=== PATIENT | female | born 1995 | race African-American/Black ===

== ENCOUNTER 2024-04-14 17:20 | Emergency (ER) | payer OTHER ==
[~2024-04-14] VITALS: Ht 167.6 cm; Wt 123.0 kg
[2024-04-14 17:29] VITALS: O2SAT 100
[2024-04-14 18:54] LABS: BASOPHILS % 0.4 % (0.0-2.0); HEMATOCRIT. 38.8 % (36.0-48.0); HEMOGLOBIN. 12.8 g/dL (12.0-16.0); LYMPHOCYTES % 9.7 % (20.0-50.0); MEAN CORPUSCULAR HEMOGLOBIN 27.3 pg (28.0-32.0); MEAN CORPUSCULAR VOLUME 82.8 fL (81.0-99.0); MEAN PLATELET VOLUME 7.4 fl (7.4-10.4); MONOCYTES % 7.4 % (2.0-8.0); NEUTROPHILS % 82.5 % (40.0-76.0); PLATELET 390 x1000/uL (130-400); RED BLOOD CELL COUNT 4.68 mill/uL (4.2-5.4); RED CELL DISTRIBUTION WIDTH 14.8 % (11.6-14.6); WHITE BLOOD COUNT 13.1 x1000/uL (4.5-11.0)
[2024-04-14 19:02] LABS: CHLORIDE 110 mEq/L (98-107); SODIUM 141 mEq/L (136-145)
[2024-04-14 19:03] LABS: CALCIUM 9.6 mg/dL (8.7-10.4); CARBON DIOXIDE 21 mEq/L (21-32)
[2024-04-14 19:08] LABS: CREATININE 0.9 mg/dL (0.6-1.0); GLUCOSE 92 mg/dL (70-105); UREA NITROGEN BLOOD 18 mg/dL (9-23)
[2024-04-14 19:10] LABS: ETHANOL BLOOD < 10 mg/dL (<10)
[2024-04-14 19:14] LABS: HCG SCREEN NEGATIVE
[2024-04-15 00:10] LABS: *AMPHETAMINES SCREEN URINE PRESUMPTIVE POSITIVE (NEGATIVE); *BARBITURATES SCREEN URINE NEGATIVE (NEGATIVE); *BENZODIAZEPINES SCREEN URINE NEGATIVE (NEGATIVE); *COCAINE SCREEN URINE NEGATIVE (NEGATIVE); METHADONE URINE SCREEN NEGATIVE (NEGATIVE); OPIATES URINE SCREEN NEGATIVE (NEGATIVE)
[2024-04-15 00:11] LABS: CANNABINOID URINE SCREEN NEGATIVE (NEGATIVE); ECSTASY MDMA SCREEN URINE CONF.TEST INDICATED (NEGATIVE); PHENCYCLIDINE URINE SCREEN NEGATIVE (NEGATIVE)
[2024-04-15 01:04] LABS: CLARITY URINE CLOUDY (CLEAR); COLOR URINE YELLOW (YELLOW)
[2024-04-15 01:05] LABS: GLUCOSE URINE NEGATIVE (NEGATIVE); PROTEIN URINE TRACE (NEGATIVE)
[2024-04-15 01:06] LABS: KETONES URINE 3+ (NEGATIVE); NITRITE URINE NEGATIVE (NEGATIVE); OCCULT BLOOD URINE NEGATIVE (NEGATIVE); UROBILINOGEN URINE 0.2 E.U./dL (0.2-1.0)
[2024-04-15 01:07] LABS: LEUKOCYTE ESTERASE URINE NEGATIVE (NEGATIVE)
[2024-04-15 01:21] LABS: RBC URINE 0-2 /hpf (0-2); SQUAMOUS EPITHELIAL CELL URINE 1+ /lpf (RARE/1+)
[2024-04-15 01:22] LABS: BACTERIA URINE NONE SEEN
[2024-04-16 08:10] VITALS: BP 122/74; PULSE 68; RESP 18; TEMP 37.2; O2SAT 100
== END 2024-04-16 10:35 | disposition home or self-care (01) ==
LOC: ER 17:20 → EDBD 17:20 → ER 04-16 10:35
DX: R44.0 Auditory hallucinations (principal); Z20.822 Contact with and (suspected) exposure to COVID-19
CPT/HCPCS: 80305; 80048; 81003; 80307; 80329; 80320; 84703; 85025; 36415; 99285; 87426; Z7610 ×2; 99284; G0480

== ENCOUNTER 2024-12-25 07:50 | Emergency (ER) | payer OTHER ==
[~2024-12-25] VITALS: Ht 167.6 cm; Wt 91.0 kg
[2024-12-25 07:52] VITALS: BP 130/81; PULSE 98; RESP 18; TEMP 37; O2SAT 99
[2024-12-25] MEDS: ACETAMINOPHEN 325MG TABLET PO ONE (11:18)
[2024-12-25] MEDS: OLANZAPINE 10 MG/VIAL IM ONE (14:14)
[2024-12-25] MEDS: HALOPERIDOL LACTATE 5MG/ML VIAL IM ONE (14:14)
[2024-12-25] MEDS ORDERED: HALOPERIDOL LACTATE 5MG/ML VIAL IM ONE (16:15)
== END 2024-12-25 17:05 | disposition left against medical advice (07) ==
LOC: ER 07:50
DX: M79.604 Pain in right leg (principal)
CPT/HCPCS: 99284; 96372; J3490; J1630

== ENCOUNTER 2024-12-25 18:56 | Inpatient (IN) | payer OTHER ==
[~2024-12-25] VITALS: Ht 162.6 cm; Wt 114.3 kg
[2024-12-25 19:10] VITALS: O2SAT 100
[2024-12-25] MEDS ORDERED: HEPARIN 25,000 UNITS PREMIX 250 ML IV SCH (22:15)
[2024-12-25 23:27] LABS: BASOPHILS % 0.5 % (0.0-2.0); EOSINOPHILS % 0.2 % (0.0-5.0); HEMATOCRIT. 38.3 % (36.0-48.0); HEMOGLOBIN. 12.4 g/dL (12.0-16.0); LYMPHOCYTES % 18.2 % (20.0-50.0); MEAN PLATELET VOLUME 7.6 fl (7.4-10.4); MONOCYTES % 9.3 % (2.0-8.0); NEUTROPHILS % 71.8 % (40.0-76.0); PLATELET 360 x1000/uL (130-400); RED BLOOD CELL COUNT 4.49 mill/uL (4.2-5.4); RED CELL DISTRIBUTION WIDTH 16.2 % (11.6-14.6)
[2024-12-25 23:51] LABS: CREATININE 0.8 mg/dL (0.6-1.0); UREA NITROGEN BLOOD 16 mg/dL (9-23)
[2024-12-26 01:10] LABS: INR 1.2
[2024-12-26] MEDS: HEPARIN 80 UNITS/KG BOLUS IV SCH (01:37)
[2024-12-26] MEDS ORDERED: KETOROLAC 30MG/ML VIAL IV PRN (01:45)
[2024-12-26] MEDS ORDERED: MAGNESIUM/ALUMINUM HYDROXIDE/SIMETHICONE 30ML UDC PO PRN (01:45)
[2024-12-26] MEDS ORDERED: ONDANSETRON HCL 4MG/2ML INJ IV PRN (01:45)
[2024-12-26] MEDS ORDERED: ACETAMINOPHEN 325MG TABLET PO PRN (01:45)
[2024-12-26] MEDS: HEPARIN 25,000 UNITS PREMIX 250 ML IV SCH (01:55)
[2024-12-26] MEDS: ENOXAPARIN 120MG/0.8ML SYR SUBCUT SCH (03:00)
[2024-12-26] MEDS: DIPHENHYDRAMINE 50MG/ML VIAL IV PRN (03:00)
[2024-12-26 03:36] VITALS: BP 120/72; PULSE 110; RESP 18; TEMP 36.418
[2024-12-26] MEDS: SODIUM CHLORIDE 0.9% 3ML FLUSH IVF SCH (07:02)
[2024-12-26] MEDS ORDERED: HEPARIN BOLUS PRN aPTT 37-44 IV (07:30)
[2024-12-26] MEDS ORDERED: HEPARIN BOLUS PRN aPTT <36 IV (07:30)
[2024-12-26 08:00] VITALS: BP 100/54; PULSE 103; RESP 17; TEMP 36.4; O2SAT 99
[2024-12-26] MEDS: ACETAMINOPHEN 325MG TABLET PO PRN (09:35)
[2024-12-26 12:00] VITALS: BP 108/61; PULSE 97; RESP 17; TEMP 36.6; O2SAT 99
[2024-12-26 16:00] VITALS: BP 101/49; PULSE 104; RESP 17; TEMP 36.1; TEMP 36.4; O2SAT 100
[2024-12-26 20:00] VITALS: BP 113/68; PULSE 103; RESP 18; TEMP 36.5; O2SAT 100
[2024-12-26] MEDS: ZOLPIDEM TARTRATE 5MG TABLET PO PRN (23:50)
[2024-12-27] VITALS: BP 98/48; PULSE 104; RESP 18; TEMP 36.8; O2SAT 98
[2024-12-27 04:00] VITALS: BP 99/48; PULSE 92; RESP 18; TEMP 36.4; O2SAT 85
[2024-12-27] MEDS ORDERED: IBUPROFEN 600MG TABLET PO PRN (11:30)
[2024-12-27 12:00] VITALS: BP 99/52; PULSE 92; RESP 18; TEMP 36.4; O2SAT 100
[2024-12-27 14:58] LABS: *AMPHETAMINES SCREEN URINE PRESUMPTIVE POSITIVE (NEGATIVE); *BARBITURATES SCREEN URINE NEGATIVE (NEGATIVE); *BENZODIAZEPINES SCREEN URINE NEGATIVE (NEGATIVE); *COCAINE SCREEN URINE PRESUMPTIVE POSITIVE (NEGATIVE); METHADONE URINE SCREEN NEGATIVE (NEGATIVE); OPIATES URINE SCREEN NEGATIVE (NEGATIVE)
[2024-12-27 14:59] LABS: CANNABINOID URINE SCREEN NEGATIVE (NEGATIVE); ECSTASY MDMA SCREEN URINE NEGATIVE (NEGATIVE); PHENCYCLIDINE URINE SCREEN NEGATIVE (NEGATIVE)
[2024-12-27 20:00] VITALS: BP 122/48; PULSE 100; RESP 18; TEMP 36.3; O2SAT 99
[2024-12-28] VITALS: BP 92/42; PULSE 103; RESP 17; TEMP 36.6; O2SAT 94
[2024-12-28 04:00] VITALS: BP 108/76; PULSE 72; RESP 18; TEMP 36.4; O2SAT 96
[2024-12-28] MEDS: ENOXAPARIN 120MG/0.8ML SYR SUBCUT SCH (09:00)
[2024-12-28] MEDS: APIXABAN 5 MG TABLET PO SCH (11:06)
[2024-12-28 12:00] VITALS: BP 92/55; PULSE 99; RESP 17; TEMP 36.6; O2SAT 97
[2024-12-28 16:00] VITALS: BP 130/67; PULSE 93; RESP 17; TEMP 36.7; O2SAT 97
== END 2024-12-28 19:31 | disposition left against medical advice (07) | DRG 197 ==
LOC: ER 18:56 → 7EST 12-26 00:22 → EDBEDREQSVC 12-26 00:58 → EDBEDREQTM 12-26 00:58 → EDBEDREQDT 12-26 00:58 → EDBEDREQ 12-26 00:58 → EDBEDREQSVC 12-26 02:23 → ENRESERV 12-26 03:05
PROVIDERS: ADMIT Internal Medicine; ATTEND Internal Medicine
DX: I82.412 Acute embolism and thrombosis of left femoral vein (principal); Z59.00 Homelessness unspecified; F14.90 Cocaine use, unspecified, uncomplicated; Z53.29 Procedure and treatment not carried out because of patient's decision for other reasons; F15.90 Other stimulant use, unspecified, uncomplicated; Z72.0 Tobacco use
CPT/HCPCS: 36415; 73610; 80048; 80305; 85025; 93971; 96365; 96375; 97161; 97166; 99285; J1200; J1644; J1650